=== PATIENT | female | born 1975 | race Two or more races ===

== ENCOUNTER 2024-03-30 08:50 | Emergency (ER) | payer OTHER ==
[2024-03-30] MEDS ORDERED: FAMOTIDINE 20 MG TABLET ONE (09:44)
[2024-03-30] MEDS ORDERED: LIDOCAINE VISCOUS 2% ORAL/TOP 15 ML UNIT-DOSE CUP ONE ×2 (09:44→09:52)
[2024-03-30] MEDS: LIDOCAINE VISCOUS 2% ORAL/TOP 15 ML UNIT-DOSE CUP MM ONE (09:50)
[2024-03-30] MEDS: FAMOTIDINE 20 MG TABLET PO ONE (09:50)
[2024-03-30 09:57] VITALS: BP 142/91; PULSE 99; RESP 22; TEMP 98.6; BMI 29.2
== END 2024-03-30 10:30 | disposition home or self-care (01) ==
LOC: JER 08:50
DX: K21.9 Gastro-esophageal reflux disease without esophagitis (principal); R05.1 Acute cough
CPT/HCPCS: 99283-25